=== PATIENT | female | born 1945 | race Caucasian/White ===

== ENCOUNTER → 2018-01-12 | Outpatient (CLI) | payer OTHER ==
--- NOTE | ~2018-01-12 | CNG ---
[facility] [place] [address] CYTO-NONGYN REPORT PROCEDURE Name: DONNA MELO Room #: REG [facility] M..#: [id number] Admission: 01/12/18 Date of : 41 Discharge: Report #: [id number] Path Case #: [id number] CYTOPATHOLOGY REPORT COLLECTION DATE: 01/12/2018 RECEIVED DATE: 01/12/2018 SUBMITTING PHYS: Dr. Shabbir Rich OTHER PHYS: Dr. Monet Gilmore ADDENDUM REPORT (Order Date: 01/17/2018 11:08) ADDENDUM COMMENT: This addendum is issued to report a well-controlled GMS fungal special stain performed on the brush rinse. Few yeast-like elements are present resembling histoplasma species. Please correlate with serological studies. The special stain was co-reviewed by Dr. Monique Mon, who concurs with my diagnosis. (IUV:mgr; 01/17/2018) Professional services performed by [facility] at [facility] [address] [place] [address] Technical services performed by [facility] at [address] [place] [address], [address] [place] [address]. ELECTRONICALLY SIGNED BY: Marybeth Jalloh M.D. DATE/TIME:01/17/2018 15:37 CLINICAL HISTORY: Lung mass; See also [id number] SPECIMEN(S) RECEIVED: A.Bronchoalveolar lavage B.Brushing, RML * * * * * * * * * * * * FINAL DIAGNOSIS: A. Lung, bronchoalveolar lavage: - No malignant cells identified. Numerous alveolar macrophages and few bronchial epithelial cells present. B. Lung, right middle lobe, brushing (smears and ThinPrep): - No malignant cells identified. - Bronchial epithelial cells, alveolar macrophages, and squamous cells present in a background of blood. COMMENT: A GMS fungal special stain is ordered on the right middle lobe brushing ThinPrep. The results of this will be reported in an addendum to follow. Co-review: Dr. Monique Mon (part B ThinPrep only). [address] [address] CYTO-NONGYN REPORT PROCEDURE Name: DONNA MELO [id number] Admission: 01/12/18 Date of : 41 Discharge: Report #: [id number] Path Case #: [id number] (IUV:lexus; 01/15/2018) PATHOLOGIST: Marybeth Jalloh M.D. REPORT ELECTRONICALLY SIGNED BY: Marybeth Jalloh M.D. DATE/TIME: 01/16/2018 11:03 * * * * * * * * * * * * GROSS PATHOLOGY: A. Bronchoalveolar lavage: The specimen is submitted unfixed, labeled "Donna Melo". Received by the Cytology Department is 16 mL of cloudy red fluid. One ThinPrep slide and a formalin fixed cell block were prepared. B. Brushing, RML: The specimen is labeled "Donna Melo" and consists of a brush tip in fixative and three fixed slides. One ThinPrep slide was prepared. (mm 01.12.2018) COURT BAILIFF OR SHERIFF(S): TREE English[facility]IAC INITIAL CPT CODE(S): A; 06766 B; 86031, 58777, 91374 Professional services performed by [facility] at [facility] [address], [place] [address] Technical services performed by [facility] at [address] [place] [address]., [address], [place] [address]. [facility], [address] [place] [address] PHONE: [phone] DIRECTOR: Jj Fisher M.D. * * * END OF REPORT * * *
--- NOTE | ~2018-01-12 | P ---
[facility] [place] [address] PROCEDURE REPORT Name: LORI MELO Room #: REG [facility].#: [id number] Admission: 01/12/18 Attend Phys: Shabbir Rich MD Discharge: Date of : 41 Report #: [id number] THIS REPORT FOR: //name// CC: Shabbir Peng MD DATE OF SERVICE: 01/12/2018 PROCEDURE: Fiberoptic bronchoscopy with transbronchial biopsies under fluoroscopic guidance, fluoroscopic-guided cytologic brushings and bronchoalveolar lavage in the right middle lobe. INDICATION: Multiple pulmonary nodules with an enlarging nodule in the lateral segment of the right middle lobe. PROCEDURE NOTATION: After discussing risks and benefits of planned procedure with the patient and her , she desired to proceed. After obtaining informed consent, she was brought to laboratory equipment installer 3, where she was placed on continuous cardiopulmonary monitoring and supplemental oxygen. She was then given 4% lidocaine nebulized to anesthetize the upper respiratory tract. Once accomplished, she received conscious sedation. A total of 6 mg of Versed and 50 mcg of fentanyl were titrated during the procedure to provide adequate sedation. Once accomplished, bronchoscope was passed through an oral bite block until the vocal cords were visualized. Vocal cords moved appropriately both before and after procedure and without lesions. Bronchoscope was then passed in the trachea, 1% lidocaine was instilled in the tracheobronchial tree bilaterally to provide topical anesthesia. Once complete, airways were surveyed. FINDINGS: Mainstem, lobar, segmental and subsegmental bronchi were explored. No significant anatomic variation or endobronchial disease. No significant secretions noted. Because of multiple lesions and enlarging right middle lobe lateral segment lesion, this was targeted under fluoroscopic guidance. A total of 4.4 minutes of fluoro were used. Under fluoroscopic guidance, several cytologic brushings were obtained in the lesion and appeared to be targeted well by fluoro. Transbronchial forceps biopsies were then obtained also using fluoroscopic guidance. Bronchoalveolar lavage was performed in the right middle lobe at the end of procedure. The patient tolerated well. No noted complications. IMPRESSION: Multiple pulmonary nodules status post bronchoscopy with fluoroscopic-guided transbronchial biopsies in RB4 as well as cytologic brushings and bronchoalveolar lavage. [address] [address] PROCEDURE REPORT Name: LORIELORIHALINA ORTIZ Room #: REG [facility] Demetri#: [id number] Admission: 01/12/18 Attend Phys: Shabbir Rich MD Discharge: Date of : 41 Report #: [id number] PLAN: Await microbiologic, cytologic and histopathologic tests. <ELECTRONICALLY SIGNED> By: Shabbir Rich MD 01/24/18 [id number] Shabbir Rich MD /nt
--- NOTE | ~2018-01-12 | S ---
[facility] [place] [address] SURGICAL PATH RPT PROCEDURE Name: DONNA MELO Room #: REG [facility] M.Abiola.#: [id number] Admission: 01/12/18 Date of : 41 Discharge: Report #: [id number] Path Case #: [id number] PATHOLOGY REPORT COLLECTION DATE: 01/12/2018 RECEIVED DATE: 01/12/2018 SUBMITTING PHYS: Dr. Shabbir Rich OTHER PHYS: Dr. Monet Gilmore SPECIMEN(S) RECEIVED: A.RML * * * * * * * * * * * * FINAL DIAGNOSIS: Lung, right middle lobe, biopsy: - Marked organizing changes with focal calcifications. - Negative for malignancy (IUV:lexus; 01/15/2018) COMMENT: Acid fast bacillus and Gomori methenamine silver stains performed on A1 are negative for mycobacterial as well as fungal elements, respectively. Co-review: Dr. Monique Mon The concurrent cytology specimen [id number] showed no malignant cells as well. Please refer to separate report for complete details. (IUV:lexus; 01/15/2018) PATHOLOGIST: Marybeth Jalloh M.D. REPORT ELECTRONICALLY SIGNED BY: Marybeth Jalloh M.D. DATE/TIME: 01/15/2018 14:36 * * * * * * * * * * * * GROSS PATHOLOGY: Received in formalin labeled "Donna Melo, biopsy RML" and consists of a few may, brown, and red tissue fragments, 0.3 x 0.2 x 0.2 cm in aggregate. They are entirely submitted A1. (NIESHA; 01/12/2018) CLINICAL HISTORY: [place] INITIAL CPT CODE(S): A; 57579, 14349, 36126 Professional services performed by [facility] at [facility] [address] [place] [address] SURGICAL PATH RPT PROCEDURE Name: DONNA MELO Room #: REG [facility] Mosquera#: [id number] Admission: 01/12/18 Date of : 41 Discharge: Report #: [id number] Path Case #: [id number], [place] [address] Technical services performed by [facility] at [address] [place] [address], [address] [address]. [place] [address] PHONE: [phone] DIRECTOR: Jj Fisher M.D. * * * END OF REPORT * * *
== END | disposition home or self-care (01) ==
LOC: CATH 01-11 08:29
DX: R91.8 Other nonspecific abnormal finding of lung field (principal)

== ENCOUNTER → 2018-03-01 | Outpatient (CLI) | payer OTHER | LOC: CAT 11:10 | DX: J98.11 Atelectasis (principal); J84.10 Pulmonary fibrosis, unspecified; M41.84 Other forms of scoliosis, thoracic region; J98.4 Other disorders of lung; M47.894 Other spondylosis, thoracic region; M48.04 Spinal stenosis, thoracic region; M46.04 Spinal enthesopathy, thoracic region; N28.89 Other specified disorders of kidney and ureter ==

== ENCOUNTER → 2019-01-17 | Outpatient (CLI) | payer OTHER | LOC: CAT 10:56 | DX: R91.1 Solitary pulmonary nodule (principal); N28.1 Cyst of kidney, acquired ==

== ENCOUNTER → 2019-07-25 | Outpatient (CLI) | payer OTHER | LOC: CAT 07:59 | DX: R91.8 Other nonspecific abnormal finding of lung field (principal); M47.815 Spondylosis without myelopathy or radiculopathy, thoracolumbar region; M41.84 Other forms of scoliosis, thoracic region; M48.04 Spinal stenosis, thoracic region; M46.04 Spinal enthesopathy, thoracic region; N28.1 Cyst of kidney, acquired; K76.0 Fatty (change of) liver, not elsewhere classified; Z88.8 Allergy status to other drugs, medicaments and biological substances ==

== ENCOUNTER → 2020-07-16 | Outpatient (CLI) | payer OTHER | LOC: CAT 10:31 | PROVIDERS: ATTEND Internal Medicine Pulmonary Disease | DX: J98.11 Atelectasis (principal); R91.8 Other nonspecific abnormal finding of lung field; I25.10 Atherosclerotic heart disease of native coronary artery without angina pectoris; J98.4 Other disorders of lung; N28.1 Cyst of kidney, acquired ==

== ENCOUNTER → 2021-07-20 | Outpatient (CLI) | payer OTHER | LOC: CAT 13:48 | PROVIDERS: ATTEND Internal Medicine Pulmonary Disease | DX: R91.8 Other nonspecific abnormal finding of lung field (principal); N28.1 Cyst of kidney, acquired ==